=== PATIENT | male | born 1995 | race Caucasian/White ===

== ENCOUNTER 2017-01-25 12:34 | Emergency (ER) | payer BC ==
--- NOTE | 2017-01-25 14:40 | UC ---
Upper Extremity HPI - HPI Summary HPI Summary: 21 year old male presents with right hand pain after a baseball hit his hand. - History of Current Complaint Stated Complaint: RIGHT HAND Time Seen by Provider: 01/25/17 14:39 Hx Obtained From: Patient Onset/Duration: Sudden Onset Severity Initially: Moderate Severity Currently: Moderate Pain Scale Used: 0-10 Numeric - 5 Character: Sharp Aggravating Factor(s): Movement, Lifting, Flexion Alleviating Factor(s): Nothing Associated Signs And Symptoms: Positive: Swelling - Allergies/Home Medications Allergies/Adverse Reactions: Allergies Allergy/AdvReac Type Severity Reaction Status Date / Time No Known Allergies Allergy Verified 01/25/17 14:52 Home Medications: Home Medications NK [No Home Medications Reported] 01/25/17 [History Confirmed 01/25/17] PMH/Surg Hx/FS Hx/Imm Hx Previously Healthy: Yes Review of Systems Constitutional: Negative Skin: Negative Eyes: Negative ENT: Negative Respiratory: Negative Cardiovascular: Negative Gastrointestinal: Negative Genitourinary: Negative Motor: Negative Neurovascular: Negative Musculoskeletal: Other: - right hand pain Neurological: Negative Psychological: Negative All Other Systems Reviewed And Are Negative: Yes Physical Exam Triage Information Reviewed: Yes Vital Signs Reviewed: Yes Eye Exam: Normal ENT Exam: Normal Dental Exam: Normal Neck exam: Normal Neck: Positive: 1 Respiratory Exam: Normal Cardiovascular Exam: Normal Abdominal Exam: Normal Musculoskeletal: Positive: Other: - right ahnd pain Neurological Exam: Normal Psychological Exam: Normal Skin Exam: Normal Upper Extremity Course/Dx - Differential Dx/Diagnosis Provider Diagnoses: right hand pain. right 5th metacarpal Discharge - Discharge Plan Condition: Stable Disposition: HOME Patient Education Materials: Hand Fracture (ED) Referrals: Toby Dillard MD [Medical Doctor] -
[2017-01-25 14:52] VITALS: BP 134/74
--- NOTE | 2017-01-25 15:13 | RAD ---
HISTORY: Right hand trauma COMPARISONS: None VIEWS: 4, Frontal, lateral, and oblique views ] of the right hand FINDINGS: BONE DENSITY: Normal. BONES: There is a fracture of the distal fifth metacarpal with volar angulation of approximately 30 degrees. There is no significant displacement JOINTS: There is no arthropathy. ALIGNMENT: There is no dislocation. SOFT TISSUES: Unremarkable. OTHER FINDINGS: None. IMPRESSION: ANGULATED FRACTURE OF THE DISTAL FIFTH METACARPAL.
== END 2017-01-25 16:26 | disposition home or self-care (01) ==
LOC: UCCORT 12:34
DX: M79.641 Pain in right hand (principal)
CPT/HCPCS: 26755; 99201; G0463